=== PATIENT | male | born 1980 | race Hispanic/Latino ===

== ENCOUNTER → 2023-12-10 | Outpatient (CLI) | payer OTHER | END | disposition home or self-care (01) | LOC: OIH 16:45 | PROVIDERS: ATTEND Internal Medicine | DX: M75.101 Unspecified rotator cuff tear or rupture of right shoulder, not specified as traumatic (principal); M24.811 Other specific joint derangements of right shoulder, not elsewhere classified | CPT/HCPCS: 73030 ==